=== PATIENT | female | born 1960 | race Caucasian/White ===

== ENCOUNTER 2017-07-12 06:22 | Day surgery (SDC) | payer OTHER ==
[~2017-07-12] VITALS: Ht 167.6 cm; Wt 55.8 kg
[~2017-07-12 06:22] MED LIST: CALCAVITDA PO; ERGO400 PO; ESCI5 PO
[2017-07-12] MEDS ORDERED: GLUC500 PO (06:51)
[2018-05-16] MEDS ORDERED: GLUC500 PO (08:03)
== END 2017-07-12 08:02 | disposition home or self-care (01) ==
LOC: ORSCSDS 06:22
PROVIDERS: Ophthalmology
PROC: 08RJ3JZ Replacement of Right Lens with Synthetic Substitute, Percutaneous Approach (ICD-10-PCS; principal; 2017-07-12 07:30)
DX: H25.11 Age-related nuclear cataract, right eye (principal)
CPT/HCPCS: J2250; J3010; J3301; J7030; V2632

== ENCOUNTER → 2017-08-16 | Outpatient (CLI) | payer OTHER ==
[~2017-08-16] MED LIST changes: +GLUC500 PO
== END | disposition home or self-care (01) ==
LOC: LAB SHORT 08:44 → PLD 08:44
DX: D22.5 Melanocytic nevi of trunk (principal); D22.71 Melanocytic nevi of right lower limb, including hip
CPT/HCPCS: 88305

== ENCOUNTER → 2017-09-05 | Outpatient (CLI) | payer OTHER | LOC: PLD 13:36 → LAB SHORT 13:36 | DX: D03.71 Melanoma in situ of right lower limb, including hip (principal) | CPT/HCPCS: 88305 ==

== ENCOUNTER → 2018-02-01 | Outpatient (CLI) | payer OTHER | END | disposition home or self-care (01) | LOC: LAB EV 13:34 → LAB SHORT 13:34 | DX: R30.0 Dysuria (principal) | CPT/HCPCS: 87077; 87086; 87186 ==

== ENCOUNTER → 2018-02-20 | Outpatient (CLI) | payer OTHER | END | disposition home or self-care (01) | LOC: PLD 07:52 → LAB SHORT 07:52 | DX: D22.72 Melanocytic nevi of left lower limb, including hip (principal) | CPT/HCPCS: 88305 ==

== ENCOUNTER 2018-11-13 12:00 | Day surgery (SDC) | payer OTHER ==
[~2018-11-13] VITALS: Ht 167.6 cm; Wt 54.3 kg
[~2018-11-13 12:00] MED LIST changes: +ESCI10 PO; +ESTRADIOL42.5 GM VAG
== END 2018-11-13 14:45 | disposition home or self-care (01) ==
LOC: ORSCSDS 12:00
PROVIDERS: Surgery
PROC: 0DJD8ZZ Inspection of Lower Intestinal Tract, Via Natural or Artificial Opening Endoscopic (ICD-10-PCS; principal; 2018-11-13 13:30)
DX: Z12.11 Encounter for screening for malignant neoplasm of colon (principal); K64.8 Other hemorrhoids; F41.8 Other specified anxiety disorders; Z79.899 Other long term (current) drug therapy
CPT/HCPCS: J2704; J7120

== ENCOUNTER → 2019-08-08 | Outpatient (CLI) | payer OTHER | END | disposition home or self-care (01) | LOC: LAB EV 10:10 → LAB SHORT 10:10 | DX: R35.0 Frequency of micturition (principal) | CPT/HCPCS: 87086 ==

== ENCOUNTER → 2020-07-15 | Outpatient (CLI) | payer OTHER | END | disposition home or self-care (01) | LOC: LAB SHORT 11:50 → PLD 11:50 | DX: L57.0 Actinic keratosis (principal) | CPT/HCPCS: 88305 ==

== ENCOUNTER → 2022-10-17 | Outpatient (CLI) | payer OTHER ==
[2022-10-17 10:35] LABS: Calcium, Urine 6.6 mg/dL (< 17.5)
[2022-10-17 10:47] LABS: Creatinine Urine 38.9 mg/dL (27.00-270.00)
== END | disposition home or self-care (01) ==
LOC: LAB SHORT 08:51 → LAB 08:51
PROVIDERS: Internal Medicine Endocrinology, Diabetes & Metabolism
DX: M80.00XD Age-related osteoporosis with current pathological fracture, unspecified site, subsequent encounter for fracture with routine healing (principal)
CPT/HCPCS: 81050; 82340; 82570